=== PATIENT | male | born 1990 | race African-American/Black ===

== ENCOUNTER 2020-10-01 18:44 | Emergency (ER) | payer OTHER ==
[~2020-10-01] VITALS: Ht 172.7 cm; Wt 77.3 kg
[2020-10-01 19:20] VITALS: TEMP 99.2
[2020-10-01] MEDS ORDERED: TYLENOL 325MG325 MG PO (20:29)
[2020-10-01] MEDS ORDERED: FLEXERIL 1010 MG/TAB PO (20:29)
[2020-10-01] MEDS ORDERED: MOTRIN 400400 MG/TAB PO (20:29)
[2020-10-01] MEDS ORDERED: LIDODERM 5% PATC1 EA TP (20:29)
[2020-10-01 21:02] VITALS: BP 143/91; PULSE 56
== END 2020-10-01 21:05 | disposition home or self-care (01) ==
LOC: COL.ER 18:44
DX: M54.5 Low back pain (principal); Z98.890 Other specified postprocedural states
CPT/HCPCS: J1885